=== PATIENT | female | born 1965 | race Caucasian/White ===

== ENCOUNTER → 2017-10-30 | Day surgery (SDC) | payer BC ==
[2017-10-19 15:52] VITALS: Ht 167.6 cm; Wt 61.4 kg
[~2017-10-30] VITALS: Ht 167.6 cm; Wt 61.4 kg
[~2017-10-30] MED LIST: ASPI-390 PO; CLR10 PO; FENTANYL CITRATE INJ 50 MCG/1 ML 2 ML VIAL ONE; IBUP-1050 PO; LEVO100T7 PO; LIDOCAINE HCL 2% 2 ML VIAL (20MG/ML) ONE; MELO7.5T5 PO; METR0.754 TOP; MIDAZOLAM HCL 1 MG/ML 2ML VIAL ONE; PANT20TA27 PO; PROPOFOL IV EMULSION 10 MG/ML 20 ML VIAL ONE; SODIUM CHLORIDE 0.9% 500ML 500 ML IV ONE
--- NOTE | 2017-10-30 13:53 | Endo History and Physical ---
History & Physical Date of Service: October 30, 2017. Chief Complaint: screening Referring Physician: Dr.Nancy Lei History of Present Illness 52 yo CF who presents for screening colonoscopy. Past Surgical History Hx Cardiac Surgery: No Hx Internal Defibrillator: No Hx Pacemaker: No Hx Abdominal Surgery: Yes (2 C-SECTIONS) Hx of Implantable Prosthesis: No Hx Cancer Surgery: No Hx Thoracic Surgery: No Hx Orthopedic: Yes (3 R WRIST SURGERIES) Hx Urinary Tract Surgery: No Family History Colon CA, Polyp Social History Smoking Status: Never Smoker Hx Substance Use: No Hx Alcohol Use: No Allergies Coded Allergies: No Known Allergies (Verified , 10/30/17) Current Medications Reported Home Medications Medications Dose Route/Sig Max Daily Dose Days Date Category Pantoprazole Sodium Dr (Pantoprazole Sodium) 20 Mg Tab 1 Tab PO DAILY 10/19/17 Reported Mobic (Meloxicam) 7.5 Mg Tab 7.5 Mg PO DAILY PRN 10/19/17 Reported Advil (Ibuprofen) 200 Mg Tab 200 Mg PO DAILY PRN 10/19/17 Reported Excedrin Migraine (Ntktkoy-Eswnhrdbdpzlf-Mqjrntys) 1 Tab Tab 1 Tab PO DAILY PRN 10/19/17 Reported Levothyroxine Sodium 100 Mcg Tab 1 Tab PO DAILY 30 10/19/17 Reported Claritin (Loratadine) 10 Mg Tab 10 Mg PO DAILY PRN 10/19/17 Reported Metrocream (Metronidazole (Topical)) 0.75 % Cre 1 Appln TOP DAILY 10/19/17 Reported Vital Signs Weight (Kilograms): 61.36 Height (Feet): 5 Height (Inches): 6 Date Time Temp Pulse Resp B/P (MAP) Pulse Ox O2 Delivery O2 Flow Rate FiO2 10/30/17 13:49 36.7 98 20 123/81 (95) 100 Room Air Physical Exam General Appearance: WD/WN, no apparent distress Respiratory/Chest: Auscultation: breath sounds normal Cardiovascular: Heart Auscultation: RRR Abdomen: Bowel Sounds: normal Inspection & Palpation: soft, non-distended, no tenderness, guarding & rebound Assessment and Plan Assessment: 52 yo CF who presents for screening colonoscopy. Plan: Proceed with colonoscopy.
--- NOTE | 2017-10-30 14:37 | Discharge Instructions ---
Endoscopy Patient Instructions Date / Procedure(s) Performed October 30, 2017. Colonoscopy Allergy Information Coded Allergies: No Known Allergies (Verified , 10/30/17) Discharge Date / Findings October 30, 2017. Diverticulosis Medication Instructions OK to resume all medications today as prescribed Reported Home Medications Medications Dose Route/Sig Max Daily Dose Days Date Category Pantoprazole Sodium Dr (Pantoprazole Sodium) 20 Mg Tab 1 Tab PO DAILY 10/19/17 Reported Mobic (Meloxicam) 7.5 Mg Tab 7.5 Mg PO DAILY PRN 10/19/17 Reported Advil (Ibuprofen) 200 Mg Tab 200 Mg PO DAILY PRN 10/19/17 Reported Excedrin Migraine (Qwukqwl-Bouzcfuudvbss-Zhwfspqa) 1 Tab Tab 1 Tab PO DAILY PRN 10/19/17 Reported Levothyroxine Sodium 100 Mcg Tab 1 Tab PO DAILY 30 10/19/17 Reported Claritin (Loratadine) 10 Mg Tab 10 Mg PO DAILY PRN 10/19/17 Reported Metrocream (Metronidazole (Topical)) 0.75 % Cre 1 Appln TOP DAILY 10/19/17 Reported Provider Instructions Activity Restrictions - No exercising or heavy lifting for 24 hours. - Do not drink alcohol the day of the procedure. - Do not drive a car or operate machinery until the day after the procedure. - Do not make any important decisions or sign important papers in 24 hours after the procedure. Following Day: - Return to full activity which may include returning to work/school. Diet Start your diet with liquids and light foods (jello, soup, juice, toast). Then eat your usual diet if not nauseated. Treatment For Common After Affects For mild abdominal pain, bloating, or excessive gas: - Rest - Eat lightly - Lie on right side Follow-Up Information Follow-up with Dr.Nancy Lei as scheduled Anesthesia Information What You Should Know You have had a procedure that required some medicine to reduce anxiety and discomfort. This treatment is called moderate sedation. After receiving the treatment, you may be sleepy, but you will be able to breathe on your own. The effects of the treatment may last for several hours. Follow these instructions along with Activity/Diet recommendations noted above: * Do NOT do anything where dizziness or clumsiness would be dangerous. * Rest quietly at home today, then you can be up and about tomorrow. * Have a responsible person stay with you the rest of today. * You may have had an I.V. today. If so, you may take the dressing off later today. Recommendations Call your doctor if: * Trouble breathing * Continuous vomiting for more than 24 hours * Temperature above 101 degrees * Severe abdominal pain or bloating * Pain not relieved by pain medicine ordered * There is increased drainage or redness from any incision * A large amount of rectal bleeding greater than 2-3 tablespoons. (If you had a polyp/s removed or have hemorrhoids, a small amount of blood - from the rectum is to be expected.) * You have any unanswered questions or concerns. IN THE EVENT OF A SERIOUS EMERGENCY, GO TO THE NEAREST EMERGENCY ROOM Your discharge instructions were prepared by provider Wai Mendez. Patient Instructions Signature Page Jazmyn Holm Patient (or Guardian) Signature/Date: I have read and understand the instructions given to me by my caregivers. Caregiver/RN/Doctor Signature/Date: The above-named patient and/or guardian has received patient instructions on this date. + Original Patient Signature Page (only) stays with chart. Please make copy for patient.
[2017-10-30 14:59] VITALS: BP 110/84; PULSE 79; O2SAT 98
--- NOTE | 2017-10-30 15:13 | Anesthesiology Progress Note ---
Anesthesia Post Op Note Date & Time October 30, 2017 at 15:13 Vital Signs Pain Intensity: 0 Vital Signs Past 12 Hours Date Time Temp Pulse Resp B/P (MAP) Pulse Ox O2 Delivery O2 Flow Rate FiO2 10/30/17 14:59 79 16 110/84 (93) 98 Room Air 10/30/17 14:44 82 16 114/85 (95) 96 Room Air 10/30/17 14:29 95 16 98/66 (77) 97 Room Air 10/30/17 13:49 36.7 98 20 123/81 (95) 100 Room Air Notes Mental Status: alert / awake / arousable, participated in evaluation Pt Amnestic to Procedure: Yes Nausea / Vomiting: adequately controlled Pain: adequately controlled Airway Patency, RR, SpO2: stable & adequate BP & HR: stable & adequate Hydration State: stable & adequate Anesthetic Complications: no major complications apparent
--- NOTE | 2017-10-30 15:20 | GI REPORT ---
Patient Name: Jazmyn Holm Procedure Date: 10/30/2017 1:53 PM Date of : 1965 Admit Type: Outpatient Age: 52 Gender: Female Attending MD: Wai Mendez DO Procedure: Colonoscopy Providers: Wai Mendez DO Referring MD: Danilo Martins Indications: Screening for colorectal malignant neoplasm Medicines: Monitored Anesthesia Care Complications: No immediate complications. Estimated Blood Loss: Estimated blood loss: none. Procedure: Pre-Anesthesia Assessment: - Prior to the procedure, a History and Physical was performed, and patient medications and allergies were reviewed. The patient's tolerance of previous anesthesia was also reviewed. The risks and benefits of the procedure and the sedation options and risks were discussed with the patient. All questions were answered, and informed consent was obtained. Prior Anticoagulants: The patient has taken no previous anticoagulant or antiplatelet agents. ASA Grade Assessment: II - A patient with mild systemic disease. After reviewing the risks and benefits, the patient was deemed in satisfactory condition to undergo the procedure. After I obtained informed consent, the scope was passed under direct vision. Throughout the procedure, the patient's blood pressure, pulse, and oxygen saturations were monitored continuously. The scope was introduced through the anus and advanced to the terminal ileum. The colonoscopy was performed without difficulty. The patient tolerated the procedure well. The quality of the bowel preparation was good. The terminal ileum, ileocecal valve, appendiceal orifice, and rectum were photographed. Findings: The perianal and digital rectal examinations were normal. Multiple small-mouthed diverticula were found in the sigmoid colon. Impression: - Diverticulosis in the sigmoid colon. - No specimens collected. Recommendation: - Resume previous diet. - Continue present medications. - Repeat colonoscopy in 10 months for surveillance. - Return to primary care physician as previously scheduled. Wai Mendez DO 10/30/2017 3:19:40 PM This report has been signed electronically. Note Initiated On: 10/30/2017 1:53 PM Number of Addenda: 0 I attest to the content of the Intraoperative Record and orders documented therein, exceptions below {[id number]}
== END | disposition home or self-care (01) ==
LOC: C.GI 13:22
PROVIDERS: ATTEND Internal Medicine
DX: Z12.11 Encounter for screening for malignant neoplasm of colon (principal); K57.30 Diverticulosis of large intestine without perforation or abscess without bleeding; K21.9 Gastro-esophageal reflux disease without esophagitis; E03.9 Hypothyroidism, unspecified; Z86.72 Personal history of thrombophlebitis; Z88.0 Allergy status to penicillin